=== PATIENT | male | born 2000 | race African-American/Black ===

== ENCOUNTER 2022-07-04 14:58 | Emergency (ER) | payer OTHER ==
[~2022-07-04] VITALS: Ht 180.3 cm; Wt 68.2 kg
[2022-07-04 15:19] VITALS: BP 103/73
== END 2022-07-04 18:20 | disposition left against medical advice (07) ==
LOC: ER 15:00
DX: R44.3 Hallucinations, unspecified (principal); Z53.21 Procedure and treatment not carried out due to patient leaving prior to being seen by health care provider

== ENCOUNTER 2024-07-31 15:23 | Emergency (ER) | payer MEDICAID, OTHER ==
[~2024-07-31] VITALS: Ht 175.3 cm; Wt 71.8 kg
[2024-07-31] MEDS: SODIUM CHLORIDE 0.9% 500 ML IV ONE (15:45)
[2024-07-31 16:22] LABS: Chloride 103 mmol/L (98-107); Potassium 3.5 mmol/L (3.5-5.1); Sodium 135 mmol/L (136-145)
[2024-07-31 16:23] LABS: Anion Gap 2 (5-15); Calcium 9.9 mg/dL (8.7-10.4); Carbon Dioxide 30 mmol/L (20-30)
[2024-07-31 16:25] LABS: Basophils # (auto) 0.1 10 ^3/uL (0-0.2); Eosinophils # (auto) 0.3 10 ^3/uL (0-0.8); Eosinophils % (auto) 2.8 % (0.0-7.0); Hemoglobin 17.6 g/dL (13.5-17.5); Lymphocytes # (auto) 2.2 10 ^3/uL (0.4-5.4); Lymphocytes % (auto) 19.6 % (10.0-50.0); Mean Corpuscular Hemoglobin 32.2 pg (28.0-32.0); Mean Corpuscular Hgb Conc. 35.1 g/dL (32.0-36.0); Mean Corpuscular Volume 91.6 fL (80.0-100.0); Monocytes # (auto) 1.2 10 ^3/uL (0-1.3); Monocytes % (auto) 10.4 % (0.0-12.0); Neutrophils # (auto) 7.3 10 ^3/uL (1.6-8.6); Neutrophils % (auto) 66.2 % (37.0-80.0); Platelet Count (auto) 349 10^3/uL (140-450); Red Blood Cells 5.46 10^6/uL (4.5-5.90); Red Cell Distribution Width 13.4 % (11.8-14.3); White Blood Cell 11.1 10^3/uL (4.4-10.8)
[2024-07-31 16:28] LABS: Glucose 87 mg/dL (74-106); Nucleated Red Blood Cells % 3.2 %
[2024-07-31 16:31] LABS: BUN/Creatinine Ratio 5.3 (10.0-20.0); Blood Urea Nitrogen < 5 mg/dL (9-23)
[2024-07-31] MEDS: levETIRAcetam 1000 mg/100ml 100 ML IV ONE (16:33)
[2024-07-31 20:07] VITALS: BP 109/66; PULSE 104; RESP 16; TEMP 98.7; O2SAT 99
== END 2024-07-31 20:15 | disposition home or self-care (01) ==
LOC: EDBD 15:23 → ER 15:23
DX: R53.1 Weakness (principal); F15.90 Other stimulant use, unspecified, uncomplicated; Z87.891 Personal history of nicotine dependence
CPT/HCPCS: 36415; 80048; 85025; 96361; 96365; 99284; J1953; J7040